=== PATIENT | male | born 1950 | race Caucasian/White ===

== ENCOUNTER → 2016-08-20 | Outpatient (REF) | payer MEDICARE ==
[~2016-08-20] MED LIST: CALC600T27 PO; ECOT81TA5 PO; KETO2AER2 TOP; LISI10TA4 PO; PRAV10TA PO; VITA-121 PO; fish; fish oil
[2016-08-20 11:26] LABS: ALBUMIN 3.7 GM/DL (3.2-5.2); BILIRUBIN,TOTAL 0.4 MG/DL (0.2-1.0); CALCIUM LEVEL 9.3 MG/DL (8.8-10.2); CREATININE FOR GFR 1.91 MG/DL (0.70-1.30); GLOMERULAR FILTRATION RATE 37.6 (>49); POTASSIUM SERUM 4.5 MEQ/L (3.5-5.1); TOTAL PROTEIN 7.4 GM/DL (6.4-8.2)
== END ==
LOC: M SFHCPLAZ 08:35
PROVIDERS: ATTEND Nurse Practitioner Family
DX: N18.3 Chronic kidney disease, stage 3 (moderate) (principal); E78.2 Mixed hyperlipidemia; E55.9 Vitamin D deficiency, unspecified

== ENCOUNTER → 2016-11-22 | Outpatient (CLI) | payer MEDICARE ==
[2016-11-22 12:15] LABS: ALBUMIN 3.5 GM/DL (3.2-5.2); ALBUMIN/GLOBULIN RATIO 0.92 (1.00-1.93); BILIRUBIN,TOTAL 0.3 MG/DL (0.2-1.0); CALCIUM LEVEL 9.2 MG/DL (8.8-10.2); CREATININE FOR GFR 1.64 MG/DL (0.70-1.30); GLOMERULAR FILTRATION RATE 44.8 (>49); PHOSPHORUS LEVEL 3.3 MG/DL (2.5-4.9); POTASSIUM SERUM 4.8 MEQ/L (3.5-5.1); TOTAL PROTEIN 7.3 GM/DL (6.4-8.2)
== END ==
LOC: M LRY 09:27
DX: Z00.01 Encounter for general adult medical examination with abnormal findings (principal); N18.9 Chronic kidney disease, unspecified; I65.23 Occlusion and stenosis of bilateral carotid arteries; Z79.899 Other long term (current) drug therapy

== ENCOUNTER → 2016-12-18 | Outpatient (REF) | payer MEDICARE ==
[~2016-12-18] MED LIST changes: -PRAV10TA PO; +PRAV10TA4 PO
[2016-12-18 12:00] LABS: FREE T4 1.03 NG/DL (0.76-1.46)
== END ==
LOC: M SFHCPLAZ 08:09
PROVIDERS: ATTEND Nurse Practitioner Family
DX: E78.2 Mixed hyperlipidemia (principal); E55.9 Vitamin D deficiency, unspecified
CPT/HCPCS: 82306; 84439; 84443; G0463

== ENCOUNTER → 2017-07-08 | Outpatient (REF) | payer MEDICARE ==
[2017-07-08 12:37] LABS: HEMATOCRIT 39.6 % (42.0-52.0); HEMOGLOBIN 13.1 g/dl (14.0-18.0); MEAN CORPUSCULAR HEMOGLOBIN 31.2 pg (27.0-33.0); MEAN CORPUSCULAR HGB CONC 33.1 g/dl (32.0-36.5); MEAN CORPUSCULAR VOLUME 94.3 fl (80.0-96.0); PLATELET COUNT, AUTOMATED 222 10^3/uL (150-450); RED CELL DISTRIBUTION WIDTH 12.5 % (11.5-14.5); WHITE BLOOD COUNT 6.2 10^3/uL (4.0-10.0)
[2017-07-08 13:09] LABS: TOTAL 25(OH) VITAMIN D 36.3 NG/ML (30.0-100.0)
[2017-07-08 13:20] LABS: ALBUMIN 3.9 GM/DL (3.2-5.2); ALBUMIN/GLOBULIN RATIO 1.15 (1.00-1.93); ALKALINE PHOSPHATASE 70 U/L (45-117); ALT/SGPT 18 U/L (12-78); ANION GAP 8 MEQ/L (8-16); AST/SGOT 22 U/L (7-37); BILIRUBIN,TOTAL 0.4 MG/DL (0.2-1.0); BLOOD UREA NITROGEN 24 MG/DL (7-18); CALCIUM LEVEL 9.2 MG/DL (8.8-10.2); CARBON DIOXIDE LEVEL 28 MEQ/L (21-32); CHLORIDE LEVEL 102 MEQ/L (98-107); GLOMERULAR FILTRATION RATE 49.5 (>49); GLUCOSE, FASTING 82 MG/DL (70-100); POTASSIUM SERUM 4.2 MEQ/L (3.5-5.1); SODIUM LEVEL 138 MEQ/L (136-145); TOTAL PROTEIN 7.3 GM/DL (6.4-8.2)
== END ==
LOC: M SFHCPLAZ 08:39
DX: E78.2 Mixed hyperlipidemia (principal); E55.9 Vitamin D deficiency, unspecified; N18.3 Chronic kidney disease, stage 3 (moderate)
CPT/HCPCS: 80053

== ENCOUNTER → 2017-07-26 | Outpatient (CLI) | payer MEDICARE | LOC: M RAD 09:07 | DX: I69.30 Unspecified sequelae of cerebral infarction (principal); I73.9 Peripheral vascular disease, unspecified; G93.9 Disorder of brain, unspecified | CPT/HCPCS: 70551 ==

== ENCOUNTER → 2017-09-02 | Outpatient (REF) ==
[2017-09-02 17:09] LABS: INFLUENZA A AMPLIFICATION NEGATIVE (NEGATIVE); INFLUENZA B AMPLIFICATION NEGATIVE (NEGATIVE)
== END ==
LOC: M LAB 09:50